=== PATIENT | male | born 1985 | race Caucasian/White ===

== ENCOUNTER 2017-11-27 18:10 | Emergency (ER) | payer OTHER ==
[~2017-11-27] VITALS: Ht 175.3 cm; Wt 90.7 kg
[~2017-11-27 18:10] MED LIST: ACETAMINOPHEN-1 EAC1 PO; CEPHALEXIN 500500 M3 PO; DIPHENHIST50 MG PO; IBUPROFEN 800800 M1 PO; MOBIC7.5 MG PO; NOHOMEMEDICATIONS; PHENERGAN 25 MG25 M1 PO; PREDNISONE50 MG PO; TRAMADOL 50 MG50 MG PO
[2017-11-27] MEDS ORDERED: IBUPROFEN 800800 M1 PO (19:08)
[2017-11-27] MEDS ORDERED: HYDROCODONE-AP1 EAC6 PO (19:08)
[2017-11-27 19:21] VITALS: BP 133/91
== END 2017-11-27 19:21 | disposition home or self-care (01) ==
LOC: M.ERS 18:10
DX: M54.5 Low back pain (principal)

== ENCOUNTER 2018-04-30 13:07 | Emergency (ER) | payer OTHER ==
[~2018-04-30] VITALS: Ht 175.3 cm; Wt 99.8 kg
[~2018-04-30 13:07] MED LIST changes: +HYDROCODONE-AP1 EAC6 PO
[2018-04-30] MEDS ORDERED: IBUPROFEN 800800 M1 PO (14:43)
[2018-04-30] MEDS ORDERED: NORCO 5-325 TA1 EACH PO (14:43)
[2018-04-30] MEDS ORDERED: FLEXERIL PO (14:43)
[2018-04-30 14:59] VITALS: BP 105/82
== END 2018-04-30 14:59 | disposition home or self-care (01) ==
LOC: M.ERS 13:07
DX: M54.5 Low back pain (principal); M53.3 Sacrococcygeal disorders, not elsewhere classified; F17.200 Nicotine dependence, unspecified, uncomplicated

== ENCOUNTER 2019-03-28 08:15 | Emergency (ER) | payer OTHER ==
[~2019-03-28] VITALS: Ht 175.3 cm; Wt 97.5 kg
[~2019-03-28 08:15] MED LIST changes: +FLEXERIL PO; +NORCO 5-325 TA1 EACH PO
[2019-03-28 08:55] LABS: CALCIUM 8.7 mg/dL (8.5-10.1); CREATININE 1.1 mg/dL (0.6-1.3); POTASSIUM 4.2 mmol/L (3.5-5.1)
[2019-03-28 08:59] LABS: ALBUMIN 3.7 g/dL (3.4-5.0); TOTAL BILIRUBIN 0.5 mg/dL (<0.1-1.0); TOTAL PROTEIN 7.4 g/dL (6.4-8.2)
[2019-03-28] MEDS ORDERED: FLEXERIL PO (09:54)
[2019-03-28] MEDS ORDERED: NORCO 5-325 TA1 EAC1 PO (09:54)
[2019-03-28 10:07] VITALS: BP 113/78
== END 2019-03-28 10:07 | disposition home or self-care (01) ==
LOC: M.ERS 08:15
PROVIDERS: Emergency Medicine Emergency Medical Services
DX: S20.212A Contusion of left front wall of thorax, initial encounter (principal); F41.9 Anxiety disorder, unspecified; F32.9 Major depressive disorder, single episode, unspecified; F17.210 Nicotine dependence, cigarettes, uncomplicated; X58.XXXA Exposure to other specified factors, initial encounter; Y93.89 Activity, other specified; Y92.89 Other specified places as the place of occurrence of the external cause; Y99.8 Other external cause status